=== PATIENT | female | born 1950 | race African-American/Black ===

== ENCOUNTER 2020-02-11 14:31 | Inpatient (IN) | payer OTHER ==
[~2020-02-11] VITALS: Ht 165.1 cm; Wt 119.5 kg
[2020-02-11 14:43] VITALS: BP 147/69
[2020-02-11 15:10] LABS: ABSOLUTE NEUTROPHILS 7.5 thou/uL (1.4-8.2); BASOPHILS 0.4 % (0.0-2.0); EOSINOPHILS 5.2 % (0.0-3.0); HEMATOCRIT 24.2 % (37.0-47.0); HEMOGLOBIN 8.1 gm/dL (12.0-15.0); LYMPHOCYTES 10.1 % (24.0-44.0); MCH 30.3 pg (26.0-34.0); MCHC 33.4 g/dL (28.0-37.0); MCV 90.6 fL (80.0-100.0); MONOCYTES 7.2 % (1.0-8.0); PLATELET COUNT 266 thou/uL (150-400); POLYS 77.1 % (36.0-66.0); RBC 2.67 mil/uL (4.20-5.00); RDW 14.7 % (10.5-14.5); WBC 9.8 thou/uL (4.0-11.0)
[2020-02-11 15:18] LABS: CREATININE 3.7 mg/dL (0.6-1.0); POTASSIUM 4.6 mmol/L (3.5-5.1)
[2020-02-11 15:28] LABS: ALBUMIN 3.2 g/dL (3.4-5.0); TOTAL BILIRUBIN 0.2 mg/dL (<0.1-1.0); TOTAL PROTEIN 7.3 g/dL (6.4-8.2); TROPONIN-I 0.11 ng/mL (<0.06)
--- NOTE | 2020-02-11 15:54 | EKG ---
[facility] [place] [address] ELECTROCARDIOGRAM REPORT Name: TAWANDA ADAME Room #: PRE M.R.#: [id number] Admission: Attend Phys: Discharge: Date of : 46 Report #: [id number] THIS REPORT FOR: cc: Luiz Benoit MD ~ THIS REPORT FOR: //name// [facility] ED Test Date: 2020-02-11 Test Time: 14:44:13 Pat Name: TAWANDA ADAME Department: Room: Gender: F Neon Technician: DINAPEYTONBALDEMAR : 1950 Requested By: Devang Zepeda Order Number: [id number] MD: Luiz Benoit Measurements Intervals [place] Rate: 60 P: 52 NC: 166 QRS: 21 QRSD: 100 T: -9 QT: 480 QTc: 480 Interpretive Statements Sinus rhythm Probable left atrial enlargement Borderline repolarization abnormality Baseline wander in lead(s) II,III,aVR,aVL,aVF,V1,V3,V4,V5 No previous ECG available for comparison Electronically Signed On 02-11-2020 15:53:01 CDT by Luiz Benoit [email or web address] <ELECTRONICALLY SIGNED> By: Luiz Benoit MD 02/11/20 1553 1444 1444 Luiz Benoit MD /TENA
[2020-02-11] MEDS ORDERED: BACLOFEN5 MG PO (17:56)
[2020-02-11] MEDS ORDERED: NORVASC10 MG PO (17:56)
[2020-02-11] MEDS ORDERED: LIPITOR40 MG PO (17:56)
[2020-02-11] MEDS ORDERED: PROAIR HFA8.5 GM INH (17:56)
[2020-02-11] MEDS ORDERED: ASA81BEC PO (17:56)
[2020-02-11] MEDS ORDERED: TYLENOL325 M1 PO (17:56)
[2020-02-11] MEDS ORDERED: ROCALTROL0.25 MCG PO (17:57)
[2020-02-11] MEDS ORDERED: SYMBICORT160 MCG/4. INH (17:57)
[2020-02-11] MEDS ORDERED: FLONASE 0.05%50 MCG NASAL (17:58)
[2020-02-11] MEDS ORDERED: CARVEDILOL25 MG PO (17:58)
[2020-02-11] MEDS ORDERED: COLACE100 MG PO (17:58)
[2020-02-11] MEDS ORDERED: LASIX 40 MG TAB40 MG PO (17:58)
[2020-02-11] MEDS ORDERED: MELATONIN3 M1 PO (17:59)
[2020-02-11] MEDS ORDERED: SUPER THERAVIT1 EACH PO (17:59)
[2020-02-11] MEDS ORDERED: SINGULAIR 10 MG10 M1 PO (17:59)
[2020-02-11] MEDS ORDERED: PROTONIX40 M2 PO (18:01)
[2020-02-11] MEDS ORDERED: MYRBETRIQ25 MG PO (18:01)
[2020-02-11] MEDS ORDERED: SODIUM BICARBO650 M3 PO (18:01)
[2020-02-11] MEDS ORDERED: SERTRALINE HCL100 MG PO (18:01)
[2020-02-11] MEDS ORDERED: SPIRIVA18 MCG INH (18:02)
[2020-02-11] MEDS ORDERED: TRAMADOL 50 MG50 MG PO (18:02)
[2020-02-11 18:14] LABS: ALBUMIN 3.3 g/dL (3.4-5.0); TOTAL PROTEIN 6.8 g/dL (6.4-8.2)
[2020-02-11 18:18] LABS: APTT 26.2 Seconds (24.5-32.8); INR 1.1; PROTIME 11.2 Seconds (9.3-11.4)
[2020-02-11 18:34] VITALS: BP 171/75
[2020-02-11 18:44] LABS: TSH 2.183 uIU/mL (0.358-3.740)
[2020-02-11 19:10] VITALS: BP 174/70
[2020-02-11 19:45] VITALS: BP 116/94
[2020-02-12] VITALS (10 sets, daily range): BP systolic 100–153; BP diastolic 43–65
--- NOTE | 2020-02-12 05:03 | NUR ---
PT WAS AN ER ADMIT, WHO WAS ADMITTED WITH CHEST PAIN. PT IS STABLE UPON ARRIVING TO THE FLOOR BUT WHEEZING NOTED IN BREATHING. SCHEDULED BREATHING TREATMENT ADMINISTERED TO PT. PT IS ALERT AND ORIENTED. ADMISSION ASSESSMENT AND EDUCATION COMPLETED. HEPARIN DRIP IS IN PLACE. SCHEDULED MEDS ADMINISTERED TO PT. TOLERATED PO INTAKE.CONITNUE TO MONITOR PT. DENIES ANY FURTHER NEEDS AT THIS TIME.
[2020-02-12 08:06] LABS: HEMATOCRIT 21.6 % (37.0-47.0); HEMOGLOBIN 7.1 gm/dL (12.0-15.0); MCH 29.9 pg (26.0-34.0); MCHC 32.9 g/dL (28.0-37.0); MCV 90.7 fL (80.0-100.0); RBC 2.38 mil/uL (4.20-5.00); RDW 14.6 % (10.5-14.5)
--- NOTE | 2020-02-12 08:21 | EKG ---
[facility] [place] [address] ELECTROCARDIOGRAM REPORT Name: TAWANDA ADAME Room #: 212-P ADM IN M.R.#: [id number] Admission: 02/11/20 Attend Phys: Blanco Blair MD Discharge: Date of : 46 Report #: [id number] THIS REPORT FOR: cc: Heath Tran James D. DO Lundgren, Craig H. MD [facility] ~ THIS REPORT FOR: //name// [facility] ED Test Date: 2020-02-11 Test Time: 16:51:34 Pat Name: TAWANDA ADAME Department: Room: [facility] Gender: F Supervisor Area: graham : 1950 Requested By: Devang Zepeda Order Number: [id number] MD: Ottoniel Emerson Measurements Intervals [place]le Rate: 61 P: 53 NM: 170 QRS: 14 QRSD: 100 T: 1 QT: 480 QTc: 484 Interpretive Statements Sinus rhythm Poor R wave progression Borderline T wave abnormalities Compared to ECG 02/11/2020 14:44:13 No significant change was found Electronically Signed On 02-12-2020 8:19:12 CDT by Ottoniel Emerson [email or web address] <ELECTRONICALLY SIGNED> By: Ottoniel Emerson MD, [facility] 02/12/20 0819 1651 1651 Ottoniel Emerson MD, [facility] /EPI
[2020-02-12 08:26] LABS: INR 1.2; PROTIME 11.8 Seconds (9.3-11.4)
[2020-02-12 08:31] LABS: CALCIUM 9.5 mg/dL (8.5-10.1); CREATININE 3.6 mg/dL (0.6-1.0); MAGNESIUM 2.3 mg/dL (1.8-2.4); POTASSIUM 4.2 mmol/L (3.5-5.1); TROPONIN-I 0.11 ng/mL (<0.06)
[2020-02-12 08:43] LABS: APTT 120.4 Seconds (24.5-32.8)
--- NOTE | 2020-02-12 10:08 | 2DMMODE ---
[facility] [place] [address] 2 D/M-MODE ECHOCARDIOGRAM Name: TAWANDA ADAME Room #: 212-P ADM IN M.R.#: [id number] Admission: 02/11/20 Attend Phys: Blanco Blair MD Discharge: Date of : 46 Report #: [id number] THIS REPORT FOR: cc: Heath Tran James D. DO Lundgren, Craig H. MD [facility] ~ APPROVED REPORT Study performed: 02/12/2020 08:58:33 EXAM: Comprehensive 2D, Doppler, and color-flow Echocardiogram Patient Location: Bedside Room #: 212 Status: routine BSA: 2.21 HR: 62 bpm BP: 136/61 mmHg Rhythm: NSR Other Information Study Quality: Good Indications Elevated Troponin Question PE. Hx: Cardiomyopathy, COPD, HTN, DM, morbid obesity. 2D Dimensions RVDd: 40.93 mm IVSd: 10.37 (7-11mm) LVOT Diam: 20.29 (18-24mm) LVDd: 56.96 mm PWd: 9.53 (7-11mm) Ascending Ao: 28.31 (22-36mm) LVDs: 38.65 (25-40mm) Aortic Root: 31.36 mm Volumes Left Atrial Volume (Systole) Single Plane 4CH: 104.51 mL Single Plane 2CH: 108.18 mL LA ESV Index: 53.00 mL/m2 Aortic Valve AoV Peak Gabriel.: 2.43 m/s AO Peak Gr.: 23.71 mmHg LVOT Max P.13 mmHg AO Mean Gr.: 12.57 mmHg [facility] [address] [place] [address] 2 D/M-MODE ECHOCARDIOGRAM Name: ADAMETAWANDA Room #: 212-P [facility] IN .R.#: [id number] Admission: 02/11/20 Attend Phys: Blanco Blair, Discharge: Date of : 46 Report #: [id number] AO V2 Mean: 1.68 m/s LVOT Max V: 1.33 m/s AO V2 VTI: 55.90 cm ARTURO Vmax: 1.77 cm2 Mitral Valve E/A Ratio: 2.1 MV Decel. Time: 159.44 ms MV E Max Gabriel.: 1.46 m/s MV A Gabriel.: 0.69 m/s MV PHT: 46.24 ms IVRT: 62.28 ms Pulmonary Valve PV Peak Gabriel.: 1.28 m/s PV Peak Gr.: 6.51 mmHg Pulmonary Vein P Vein S: 0.87 m/s P Vein A: 0.29 m/s P Vein D: 0.68 m/s P Vein A Dur.: 152.2 msec P Vein S/D Ratio: 1.28 Tricuspid Valve TR Peak Gabriel.: 3.47 m/s RAP Estimate: 12.00 mmHg TR Peak Gr.: 48.30 mmHg PA Pressure: 60.00 mmHg Left Ventricle The left ventricle is normal size. There is normal LV segmental wall motion. There is normal left ventricular wall thickness. Left ventricular systolic function is normal. LVEF is 60-65%. Right Ventricle The right ventricle is normal size. The right ventricular systolic function is normal. Atria Left atrium is dilated. Right atrium is at the upper limits of normal. Aortic Valve Aortic valve leaflets are thickened and mildly calcified; very mild stenosis. No aortic regurgitation is present. Calculated aortic valve area is 1.8 cm2 with maximum pressure gradient of 24 mmHg and mean pressure gradient of 13 mmHg. Mitral Valve The mitral valve is normal in structure. Mild mitral regurgitation. [address] [address] 2 D/M-MODE ECHOCARDIOGRAM Name: TAWANDA ADAME Room #: 212-P [facility] IN M.R.#: [id number] Admission: 02/11/20 Attend Phys: Blanco Blair, Discharge: Date of : 46 Report #: [id number] No evidence of mitral valve stenosis. Tricuspid Valve The tricuspid valve is normal in structure. Mild to moderate tricuspid regurgitation. Estimated PAP is 55 mmHg. Pulmonic Valve Pulmonic valve is not well visualized. Trace pulmonic regurgitation. Great Vessels The aortic root is normal in size. The ascending aorta is normal in size. IVC is dilated and collapses <50% with inspiration. Pericardium There is no pericardial effusion. <Conclusion> Left ventricular systolic function is normal. There is normal LV segmental wall motion. LVEF is 60-65%. Left atrium is dilated. Aortic valve leaflets are thickened and mildly calcified; very mild stenosis. No aortic insufficiency Calculated aortic valve area is 1.8 cm2 (Peak gradient of 24 mmHg and mean pressure gradient of 13 mmHg). The mitral valve is normal in structure. Mild mitral regurgitation. Mild to moderate tricuspid regurgitation. Estimated pulmonary artery pressure of 55 mmHg. There is no pericardial effusion. <ELECTRONICALLY SIGNED> By: Ottoniel Emerson MD, FACC 02/12/20 1006 1006 1006 Ottoniel Emerson MD, FACC /INF
--- NOTE | 2020-02-12 15:16 | NUR ---
PT IS FROM [facility] FAXED CLINICAL UPDATE SPOKE WITH GATO IN ADM SHE RECEIVED UPDATE. DP TO FOLLOW.
--- NOTE | 2020-02-12 17:12 | NUR ---
Case opened to follow for dc planning. [facility] Practitioner spoke with the pt via phone and the liason from [facility]. The pt is a ltc resident there and is normally up in a w/c or with a rwalker and assistx 1. She is a&ox4 and indicates that she has let her bro/dpoa Bereket know that she is in the hospital. She is planning to return to [facility] at [place]. Will ask for PT/OT evals for possible snf stay as she may benefit from therapy. She is a smoker, does not wear o2 and has a hx of schizoeffect disorder. She states that she is feeling better. Cm role introduced. Will follow along and coordinate her return to the SNF [place].
--- NOTE | 2020-02-12 18:37 | NUR ---
PT CARE ASSUMED AT 0700. ASSESSMENTS CHARTED. MEDICATION CHARTED. ECHO PERFORMED. V/Q SCAN PERFORMED. HEPARIN AT 8.911 U/KG/HR, 1435 APTT 60.8 NO CHANGE. OZZIE ORDER 1 UNIT RBC FOR 7.1 HGB.
[2020-02-13] VITALS (7 sets, daily range): BP systolic 143–158; BP diastolic 61–76
--- NOTE | 2020-02-13 05:10 | NUR ---
ASSUMED PT CARE AT 1900. PT IS IS ALERT AND ORIENTED WITH NO SIGN OF DISTRESS NOTED IN PT. PT IS STABLE. ASSESSMENT COMPLETED AND DOCUMENTED. FALL PRECAUTION IN PLACE. BLOOD TRANSFUSION ORDERED. 1 UNIT OF PRBC ADMINISTERED TO PT. PT TOLERATED TRANSFUSION. NO SIGN OF DISTRESS NOTED IN PT. SCHEDULED MEDS ADMINISTERED TO PT. TOLERATED PO INTAKE. CONTINUE TO MONITOR. NO ACUTE EVENT OCCURRED OVERNIGHT. DENIES ANY FURTHER NEEDS AT AT THIS TIME.
[2020-02-13 06:37] LABS: HEMATOCRIT 24.6 % (37.0-47.0); HEMOGLOBIN 8.1 gm/dL (12.0-15.0); MCV 91.1 fL (80.0-100.0); RBC 2.7 mil/uL (4.20-5.00); RDW 14.5 % (10.5-14.5); WBC 9.2 thou/uL (4.0-11.0)
[2020-02-13 06:48] LABS: INR 1.1; PROTIME 11.4 Seconds (9.3-11.4)
[2020-02-13 06:49] LABS: CALCIUM 9.7 mg/dL (8.5-10.1); CREATININE 3.7 mg/dL (0.6-1.0); MAGNESIUM 2.5 mg/dL (1.8-2.4); POTASSIUM 4.5 mmol/L (3.5-5.1)
--- NOTE | 2020-02-13 14:06 | NUR ---
Update given to the [facility] liajono. Dc timeframe is uncertain. Pt got one unit of blood and is on heprin gtt. Care team awaiting records from [facility]. PT/OT following. Dc to SNF at [place] once medically stable.
[2020-02-13] MEDS ORDERED: CHLORZOXAZONE250 M1 PO (15:54)
[2020-02-13] MEDS ORDERED: DIFLORASONE DIA TOP (15:55)
[2020-02-13] MEDS ORDERED: LIDOCAINE35.44 GM TOP (15:55)
[2020-02-13] MEDS ORDERED: BACLOFEN 10MG T10 MG PO (15:56)
[2020-02-13] MEDS ORDERED: CALCIPOTRIENE60 G1 TOP (15:56)
[2020-02-13] MEDS ORDERED: ACETAMINOPHEN325 M1 PO (17:19)
[2020-02-13] MEDS ORDERED: SODIUM BICARBO650 M3 PO (17:23)
[2020-02-13] MEDS ORDERED: TRAMADOL 50 MG50 MG PO (17:24)
--- NOTE | 2020-02-13 18:24 | NUR ---
PT CARE ASSUMED AT 0700. ASSESSMENTS CHARTED. MEDICATION CHARTED. PT TESTED FOR COVID-19 FOR RETURN TO FACILITY, COVID-19 NEGATIVE.
[2020-02-14 04:50] LABS: HEMATOCRIT 24.1 % (37.0-47.0); MCH 29.9 pg (26.0-34.0); MCHC 33.1 g/dL (28.0-37.0); MCV 90.5 fL (80.0-100.0); RBC 2.66 mil/uL (4.20-5.00); RDW 14.5 % (10.5-14.5); WBC 8.8 thou/uL (4.0-11.0)
[2020-02-14 05:13] VITALS: BP 157/64
[2020-02-14 05:17] LABS: INR 1.3; PROTIME 13.1 Seconds (9.3-11.4)
[2020-02-14 05:25] LABS: CALCIUM 9.6 mg/dL (8.5-10.1); CREATININE 3.6 mg/dL (0.6-1.0); MAGNESIUM 2.4 mg/dL (1.8-2.4); POTASSIUM 4.6 mmol/L (3.5-5.1)
--- NOTE | 2020-02-14 06:44 | NUR ---
ASSUMED PT CARE AT 1900. PT IS ALERT AND ORIENTED WITH NO SIGN OF DISTRESS NOTED IN PT. PT IS STABLE. ASSESSMENT COMPLETED AND DOCUMENTED. FALL PRECAUTION IN PLACE. SCHEDULED MEDS ADMINISTERED TO PT. DENIES ANY PAIN. CONTINUE TO MONITOR PT. DENIES ANY FURTHER NEEDS AT THIS TIME
[2020-02-14 08:00] VITALS: BP 136/66
[2020-02-14 12:00] VITALS: BP 157/62
[2020-02-14 17:00] VITALS: BP 164/83
--- NOTE | 2020-02-14 18:45 | NUR ---
ASSUMMED PT CARE AT APPROXIMATELY 0700. PT A&O X4. ASSESSMENT CHARTED. FALL PRECAUTIONS IN PLACE. PT DENIES HAVING CHEST PAIN. PT STATED SHE HAS SOB ON EXERSION. O2 SATS STABLE. VITAL SIGNS STABLE. BLOOD SUGARS STABLE. PT DENIED HAVING ACUTE PAIN. PT STATED SHE HAD HEARTBURN. ELEVATED HOB. REPOSITIONED PT. PT STATED SHE CONTINUED TO HAVE HEARTBURN. INFORMED DR. LAMBERT. DR. LAMBERT ORDERED NEW MED. NEW MED IMPLEMENTED. WILL CONT TO MONITOR HEARTBURN. PT COMFORTABLE. PT DENIES HAVING FURTHER CONCERNS. PT ON CONTINUOUS HEPARIN DRIP. HEPARIN THERAPEUTIC. HEPARIN PROTOCOL FOLLOWED.
[2020-02-14 19:28] VITALS: BP 148/70
--- NOTE | 2020-02-15 00:52 | NUR ---
TOOK OVER CARE AT 2300. PT AWKAE AND RESTING IN BED. HEPARIN DRIP INTACT.
--- NOTE | 2020-02-15 02:17 | NUR ---
PT CALLS FOR STAFF TO ASSIST WITH REPOSITIONING.
[2020-02-15 04:34] LABS: HEMOGLOBIN 8.6 gm/dL (12.0-15.0); MCH 29.8 pg (26.0-34.0); MCHC 32.9 g/dL (28.0-37.0); MCV 90.4 fL (80.0-100.0); RBC 2.87 mil/uL (4.20-5.00); RDW 14.6 % (10.5-14.5); WBC 10.3 thou/uL (4.0-11.0)
[2020-02-15 04:51] LABS: CREATININE 3.8 mg/dL (0.6-1.0); MAGNESIUM 2.5 mg/dL (1.8-2.4); POTASSIUM 5.3 mmol/L (3.5-5.1)
[2020-02-15 05:30] LABS: INR 1.6; PROTIME 16.7 Seconds (9.3-11.4)
[2020-02-15 08:00] VITALS: BP 143/70
[2020-02-15 12:00] VITALS: BP 163/77
[2020-02-15 16:00] VITALS: BP 153/83
--- NOTE | 2020-02-15 17:19 | NUR ---
PT CARE ASSUMED AT 0700, PT ALERT AND OORIENTED X4, DENIES CHEST PAIN, NAUSEA AND VOMITING. PT SOUNDS WHEEZY, AND MORE SOA WITH ANY ACTIVITY. PT IS ON 2L NC, CONTINUOS PULSE OX IS ON PT. PT IS ON HEPARIN DRIP 8UNITS/KG WITHIN THERAPEUTIC RANGE. PT DENIES ANY NEEDS AT THE MOMENT. CALL LIGHT AND TABLE WITHIN REACH. WILL CONTINUE TO MONITOR.
[2020-02-15 20:33] VITALS: BP 168/70
--- NOTE | 2020-02-16 05:11 | NUR ---
ASSUMED PT CARE AT 1900. PT IS ALERT AND ORIENTED. NO SIGN OF DISTRESS NOTED IN PT. PT IS STABLE AND LAYING IN BED. VITAL SIGNS STABLE. FALL PRECAUTION IN PLACE. ASSESSMENT COMPLETED AND DOCUMENTED. DENIES ANY PAIN. SCHEDULED MEDS ADMINISTERED TO PT. TOLERATED PO INTAKE. PT VERBALIZES HEARTBURN. MEDICATION ADMINISTERED. HEPARIN DRIP IN PLACE. CONTINUE TO MONITOR PT. DENIES ANY FURTHER NEEDS AT THIS TIME
[2020-02-16 05:17] VITALS: BP 176/77
[2020-02-16 05:50] LABS: INR 2.4; PROTIME 24.6 Seconds (9.3-11.4)
[2020-02-16 07:30] VITALS: BP 179/66
[2020-02-16 07:46] LABS: HEMATOCRIT 26.2 % (37.0-47.0); HEMOGLOBIN 8.7 gm/dL (12.0-15.0); RBC 2.88 mil/uL (4.20-5.00); RDW 14.7 % (10.5-14.5); WBC 10.9 thou/uL (4.0-11.0)
[2020-02-16 07:49] LABS: CALCIUM 9.7 mg/dL (8.5-10.1); CREATININE 3.6 mg/dL (0.6-1.0); MAGNESIUM 2.3 mg/dL (1.8-2.4); POTASSIUM 4.6 mmol/L (3.5-5.1)
[2020-02-16 09:45] VITALS: BP 148/65
[2020-02-16 11:45] VITALS: BP 143/67
[2020-02-16] MEDS ORDERED: COUMADIN 2.5MG2.5 M1 PO (14:23)
[2020-02-16] MEDS ORDERED: NICOTINE TRANSD14 M1 TRANSDERM (14:23)
--- NOTE | 2020-02-16 14:29 | NUR ---
FAXED CLINICAL UPDATE TO [facility] SPOKE WITH GATO IN ADM SHE RECEIVED UPDATE. DP TO FOLLOW.
--- NOTE | 2020-02-16 14:49 | NUR ---
Sp with Lucía at [facility] who reports waived auth from [facility] for skilled care. She arranged van for [id number]. Updated phys who completed orders. Notified RN of time she plans to tell patient. Notified brother of dc and timeframe. Faxed orders to facility and unit. Requested chart copy. no further needs
--- NOTE | 2020-02-16 16:37 | NUR ---
ASSUMED CARE 0700. PT ALERTX3, FROM [facility], ELEVATED BP MANAGED WITH MEDICATIONS, SOB WITH TRANSFERS, CONTINUES ON 2L NASAL CANNULA, AX1 WITH GATE BELT AND WALKER, DENIES PAIN, PT VOICE LEFT LE SWELLING HAS "GONE DOWN." PT PROGRESSED TO BE DC'S TO [facility]. REPORT GIVEN TO SAEID CHEN. IV AND TELE REMOVED. LEFT WITH SECURE TRANSFER.
== END 2020-02-16 16:48 | DRG 299 ==
LOC: ER 14:31 → 2N 18:24 → EROBS 18:24 → 2N 19:49
PROVIDERS: Physician Assistant; ADMIT Internal Medicine
PROC: B54DZZZ Ultrasonography of Bilateral Lower Extremity Veins (ICD-10-PCS; principal; 2020-02-11)
PROC: 30233N1 Transfusion of Nonautologous Red Blood Cells into Peripheral Vein, Percutaneous Approach (ICD-10-PCS; 2020-02-12)
DX: I82.409 Acute embolism and thrombosis of unspecified deep veins of unspecified lower extremity (principal); J96.01 Acute respiratory failure with hypoxia; N17.9 Acute kidney failure, unspecified; I42.9 Cardiomyopathy, unspecified; J44.1 Chronic obstructive pulmonary disease with (acute) exacerbation; Z68.41 Body mass index [BMI] 40.0-44.9, adult; I13.0 Hypertensive heart and chronic kidney disease with heart failure and stage 1 through stage 4 chronic kidney disease, or unspecified chronic kidney disease; J45.909 Unspecified asthma, uncomplicated; E03.9 Hypothyroidism, unspecified; F41.9 Anxiety disorder, unspecified; F25.9 Schizoaffective disorder, unspecified; I50.9 Heart failure, unspecified; N18.9 Chronic kidney disease, unspecified; F17.210 Nicotine dependence, cigarettes, uncomplicated; E11.22 Type 2 diabetes mellitus with diabetic chronic kidney disease; D63.8 Anemia in other chronic diseases classified elsewhere; G47.33 Obstructive sleep apnea (adult) (pediatric); E66.01 Morbid (severe) obesity due to excess calories; K21.9 Gastro-esophageal reflux disease without esophagitis; E87.5 Hyperkalemia; Z79.82 Long term (current) use of aspirin; Z79.899 Other long term (current) drug therapy; Z88.0 Allergy status to penicillin; Z88.8 Allergy status to other drugs, medicaments and biological substances
CPT/HCPCS: 10081

== ENCOUNTER 2020-04-07 12:47 | Inpatient (IN) | payer OTHER ==
[~2020-04-07] VITALS: Ht 152.4 cm; Wt 124.5 kg
[2020-04-07] VITALS (13 sets, daily range): BP systolic 103–144; BP diastolic 38–66
--- NOTE | ~2020-04-07 | HC ---
[facility] [place] [address] CONSULTATION Name: TAWANDA ADAME Room #: 237-P [facility] IN M.R.#: [id number] Admission: 04/07/20 Attend Phys: Bar Buck MD Discharge: Date of : 46 Report #: [id number] THIS REPORT FOR: cc: Heath Tran,Ole Baig DO ~ CC: Heath Buck PALLIATIVE CARE CONSULTATION CHIEF COMPLAINT: Respiratory failure, COVID-19. HISTORY OF PRESENT ILLNESS: The patient is a 69-year-old female who presented initially on 04/07/2020. She had known COVID-19, acute pulmonary edema and renal failure. Unfortunately, the patient has had no significant progression of her overall condition towards a positive manner and had unfortunately required ventilatory support. She is on day #9 of ventilatory support. She is requiring a high FiO2. Chest x-ray has not improved significantly. Dr. Brandon consulted as the patient's outlook appeared to be poor. The patient is nonresponsive at this time. PAST MEDICAL HISTORY: Significant for congestive heart failure, chronic kidney disease, DVT history, hypertension, type 2 diabetes. SOCIAL HISTORY: Brother is power of title attorney. His name is Bereket Willis. I have spoken with him today. FAMILY HISTORY: Noncontributory. Unable to obtain at this time. ALLERGIES: PENICILLIN AND LISINOPRIL. PAST SURGICAL HISTORY: Unable to obtain due to present medical condition. MEDICATIONS: Currently Reglan, sertraline, heparin, loratadine, Merrem, Humalog, aspirin, omeprazole, tramadol, fentanyl, propofol, desonide, Lasix. REVIEW OF SYSTEMS: Unable to obtain due to present medical condition. PHYSICAL EXAMINATION: VITAL SIGNS: Includes temperature 36.6, pulse 63, respirations 19, blood pressure 102/44, 94% on ventilatory support. GENERAL: The patient is not alert. Did a distance exam today; does not appear to be in any distress. HEENT: Does not appear to have any trauma to the scalp. CARDIOVASCULAR: Appears to be regular rate and rhythm at this time, worse on monitoring. [facility] [address] [place] [address] CONSULTATION Name: TAWANDA ADAME Room #: 237-P ADM IN M.R.#: [id number] Admission: 04/07/20 Attend Phys: Bar Buck MD Discharge: Date of : 46 Report #: [id number] ABDOMEN: No significant distention reported. NEUROLOGIC: Again, nonresponsive, poor attention. LABORATORY DATA: These include pH 7.195, which is a significant decrease over time. Hemoglobin 7.3, creatinine 3.5. ASSESSMENT AND PLAN: 1. Acute hypoxic respiratory failure. At this time, I have discussed with brother with regards to her condition that is worsening. He has elected for do not resuscitate status. Did discuss the possibility of palliative extubation in palliative care. He is to discuss with 2 daughters, his sisters prior to making any further decisions with regards to this. We will follow up tomorrow. I spent approximately 20 minutes of advanced care planning. 2. SARS-CoV-2. Appreciate primary team's management. Not a candidate for remdesivir. She is on steroids, has had positioning, unfortunately worsening of her overall respiratory status. 3. Acute renal failure. Again, she has worsening renal condition, although relatively stable recently, this likely is in play in her current condition. Thank you very much for this consultation. I will follow up with the family's decision in the morning with regards to care. By: [id number] 0427 Ole Diaz DO /nt
--- NOTE | ~2020-04-07 | EMS ---
[facility] [address] [place] [address] EMS Patient Care Report Name: TAWANDA ADAME Room #: REG ARTEM Quevedo#: [id number] Admission: 04/07/20 Attend Phys: Discharge: Date of : 46 Report #: [id number] THIS REPORT FOR: //name// Report Transmitted: 04/07/2020 13:50 EMS Care Summary [place], [place]/[facility] Incident [id number] @ 04/07/2020 12:11 Incident Location [id number] [place] [address] [address] Patient TAWANDA ADAME Female, 69 Years 1950 Patient Address [address] [facility] [address] [place] [address] Patient History Asthma,Chronic Obstructive Pulmonary Disease (COPD), Patient Allergies No known allergies, Patient Medications Aspirin, Atorvastatin, Carvedilol, Chief Complaint SHORT OF AIR Disposition Transported No Lights/[place] Dispatch Reason Breathing Problem Transported To [facility] Narrative RESPONDED TO [facility] FOR BREATHING PROBLEMS. UPON ARRIVAL PT FOUND LAYING IN BED ALERT AND ORIENTED BUT ONLY SPEAKING BROKEN SENTENCES. STAFF REPORT PT HAS BEEN IN RESPIRATORY DISTRESS SINCE THIS MORNING AND THEY HAVE STRUGGLED TO [facility] [address] [place] [address] EMS Patient Care Report Name: TAWANDA ADAME Room #: REG ARTEM Quevedo#: [id number] Admission: 04/07/20 Attend Phys: Discharge: Date of : 46 Report #: [id number] KEEP HER O2 SATS UP. PT SATS ON 4LPM AT 76 PERCENT. PT LUNG SOUNDS WET AND FLUID NOTED, PT HAS DEEP COUGH. PT TESTED NEGATIVE FOR COVID 19 RECENTLY. PT DID NOT HAVE SYMTPOMS TODAY. PT TEAM LIFTED TO COT AND SAT UP. PT PLACED ON NRB AT 15LPM WITH SOME IMPROVEMENT AND RELIEF REPORTED. PT TRANSPORTED TO [facility]. PT TEAM LIFTED TO BED AND HANDRAILS UP. REPORT GIVEN TO NURSE. Initial Vitals @12:31P: 97,SpO2: 76, @12:37P: 103,CO: 15,SpO2: 94, @12:30P: 62,R: 24,BP: 128/61,Pain: 0/10,GCS: 15,SpO2: 80,Revised Trauma: 12, @12:32P: 54,SpO2: 75, @12:34P: 65,BP: 153/61,SpO2: 89, Assessments @12:24MENTAL:Time Oriented,Person Oriented,Event Oriented,Place Oriented,SKIN:HEENT:Head/Face: No Abnormalities,Neck/Airway: No Abnormalities,LUNG SOUNDS:General: No Abnormalities,ABDOMEN:General: No Abnormalities,PELVIS//GI:Incontinence,EXTREMITIES:Right Leg: Weakness,Left Arm: Weakness,Left Leg: Weakness,Right Arm: Weakness,PULSE:NEURO:No Abnormalities,@12:30MENTAL:No Abnormalities,SKIN:No Abnormalities,HEENT:Head/Face: No Abnormalities,Eyes: No Abnormalities,Neck/Airway: No Abnormalities,LUNG SOUNDS:General: No Abnormalities,Left Upper: No Abnormalities,Right Upper: No Abnormalities,Left Lower: No Abnormalities,Right Lower: No Abnormalities,ABDOMEN:General: No Abnormalities,Left Upper: No Abnormalities,Right Upper: No Abnormalities,Left Lower: No Abnormalities,Right Lower: No Abnormalities,PELVIS//GI:No Abnormalities,EXTREMITIES:Left Leg: Weakness,Left Arm: Weakness,Right Arm: Weakness,Right Leg: Weakness,PULSE:NEURO:No Abnormalities, Impression Acute Respiratory Distress (Dyspnea) Procedures @12:24ALS AssessmentResponse: UnchangedSucceeded@12:26Oxygen FlowRate: 15 Device: Non Re-breather Mask (NRB) Response: ImprovedSucceeded@PTAOxygen FlowRate: 4 Device: Nasal Cannula (NC) Succeeded@12:283-Lead ECGResponse: UnchangedSucceeded 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,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 FlowRate: 4 Device: Nasal Cannula (NC) Succeeded, 12:10,Call Received 12:10,Dispatch Notified 12:11,Dispatched 12:12,En Route 12:20,On Scene 12:24,[place] [address] EMS Patient Care Report Name: TAWANDA ADAME Room #: VASYL Quevedo#: [id number] Admission: 04/07/20 Attend Phys: Discharge: Date of : 46 Report #: [id number] 12:24,ALS Assessment,Response: UnchangedSucceeded, 12:26,Oxygen FlowRate: 15 Device: Non Re-breather Mask (NRB) Response: ImprovedSucceeded, 12:28,3-Lead ECG,Response: UnchangedSucceeded, 12:30,BP: 128/61 M,PULSE: 62,RR: 24 R,SPO2: 80 Ox,ETCO2: ,BG: ,PAIN: 0,GCS: 15, 12:31,BP: / M,PULSE: 97,RR: R,SPO2: 76 Ox,ETCO2: ,BG: ,PAIN: ,GCS: , 12:32,BP: / M,PULSE: 54,RR: R,SPO2: 75 Ox,ETCO2: ,BG: ,PAIN: ,GCS: , 12:32,Depart Scene 12:34,BP: 153/61 M,PULSE: 65,RR: R,SPO2: 89 Ox,ETCO2: ,BG: ,PAIN: ,GCS: , 12:37,BP: / M,PULSE: 103,RR: R,SPO2: 94 Ox,ETCO2: ,BG: ,PAIN: ,GCS: , 12:42,At Destination 12:56,Call Closed Disclaimer v1.1 Copyright 2020 [employer] This EMS Care Summary contains data elements from the applicable legal record (which may be displayed differently). It is designed to provide pertinent information for the following purposes: continuity of care, clinical quality, and state data reporting. The complete legal record is available to ED staff and administrators of the receiving hospital in [facility] Patient Tracker. All data is provided "as is."
[~2020-04-07 12:47] MED LIST: ACETAMINOPHEN325 M1 PO; ASA81BEC PO; BACLOFEN 10MG T10 MG PO; BACLOFEN5 MG PO; CALCIPOTRIENE60 G1 TOP; CARVEDILOL25 MG PO; CHLORZOXAZONE250 M1 PO; COLACE100 MG PO; COUMADIN 2.5MG2.5 M1 PO; DIFLORASONE DIA TOP; FLONASE 0.05%50 MCG NASAL; LASIX 40 MG TAB40 MG PO; LIDOCAINE35.44 GM TOP; LIPITOR40 MG PO; MELATONIN3 M1 PO; MYRBETRIQ25 MG PO; NICOTINE TRANSD14 M1 TRANSDERM; NORVASC10 MG PO; PROAIR HFA8.5 GM INH; PROTONIX40 M2 PO; ROCALTROL0.25 MCG PO; SERTRALINE HCL100 MG PO; SINGULAIR 10 MG10 M1 PO; SODIUM BICARBO650 M3 PO; SPIRIVA18 MCG INH; SUPER THERAVIT1 EACH PO; SYMBICORT160 MCG/4. INH; TRAMADOL 50 MG50 MG PO; TYLENOL325 M1 PO
[2020-04-07 13:22] LABS: ABSOLUTE NEUTROPHILS 8.9 thou/uL (1.4-8.2); BASOPHILS 0.4 % (0.0-2.0); EOSINOPHILS 0.6 % (0.0-3.0); HEMATOCRIT 23.3 % (37.0-47.0); HEMOGLOBIN 7.7 gm/dL (12.0-15.0); LYMPHOCYTES 2.5 % (24.0-44.0); MCH 29.8 pg (26.0-34.0); MCV 90.2 fL (80.0-100.0); MONOCYTES 10.3 % (1.0-8.0); PLATELET COUNT 248 thou/uL (150-400); POLYS 86.2 % (36.0-66.0); RBC 2.58 mil/uL (4.20-5.00); WBC 10.3 thou/uL (4.0-11.0)
[2020-04-07 13:29] LABS: URINE BILIRUBIN NEGATIVE (Negative); URINE BLOOD TRACE (Negative); URINE CLARITY CLEAR; URINE COLOR YELLOW; URINE GLUCOSE-RANDOM* NEGATIVE (Negative); URINE KETONES NEGATIVE (Negative); URINE LEUKOCYTES-REFLEX NEGATIVE (Negative); URINE NITRITE-REFLEX NEGATIVE (Negative); URINE PROTEIN (DIPSTICK) 1+ (Negative); URINE SPECIFIC GRAVITY 1.015 (1.005-1.035); URINE UROBILINOGEN 0.2 E.U./dl (0.2-1.0)
[2020-04-07 13:29] LABS: ANION GAP 7 mmol/L (7-16); BUN 39 mg/dL (7-18); CALCIUM 9.4 mg/dL (8.5-10.1); CHLORIDE 106 mmol/L (98-107); CO2 26 mmol/L (21-32); CREATININE 3.3 mg/dL (0.6-1.0); GLUCOSE 110 mg/dL (74-106); POTASSIUM 5.1 mmol/L (3.5-5.1); SODIUM 139 mmol/L (136-145)
[2020-04-07 13:35] LABS: ALBUMIN 2.8 g/dL (3.4-5.0); DIRECT BILIRUBIN < 0.1 mg/dL (<0.1-0.2); SGOT 18 U/L (15-37); SGPT 27 U/L (30-65); TOTAL BILIRUBIN 0.3 mg/dL (0.2-1.0); TOTAL PROTEIN 6.2 g/dL (6.4-8.2)
[2020-04-07 13:39] LABS: BACTERIA-REFLEX 1-9 Few /HPF (None Seen); CASTS None Seen /LPF (None Seen); CRYSTALS None Seen /LPF (None Seen); SQUAMOUS 0-3 Few /LPF (0-3); URINE RBC 0-2 Rare /HPF (0-2); URINE WBC-REFLEX 0-5 Rare /HPF (0-5)
[2020-04-07 13:45] LABS: BE(vivo) -3.6 mmol/L (-2 to +3); HCO3 22.2 mmol/L (22.0-26.0); PCO2 43.8 mmHg (35.0-45.0); PO2 68.7 mmHg (80.0-100.0); pH 7.323 (7.360-7.450); sO2 92.4 % (92.0-98.0)
[2020-04-07 14:18] LABS: INR 2.6
--- NOTE | 2020-04-07 19:26 | NUR ---
ADMITTED TO ICU ON BIPAP. RATE 22, 12/6, .60 FIO2. LUNGS COURSE WITH CRACKLES. TOLERATING WELL. REPORT GIVEN TO TIM CHEN.
[2020-04-08] VITALS (23 sets, daily range): BP systolic 95–153; BP diastolic 42–83
[2020-04-08 06:50] LABS: HEMATOCRIT 24.9 % (37.0-47.0); HEMOGLOBIN 7.8 gm/dL (12.0-15.0); MCH 28.7 pg (26.0-34.0); MCHC 31.5 g/dL (28.0-37.0); MCV 91.2 fL (80.0-100.0); RBC 2.73 mil/uL (4.20-5.00); WBC 7.7 thou/uL (4.0-11.0)
[2020-04-08 07:07] LABS: CALCIUM 9.1 mg/dL (8.5-10.1); CREATININE 3.5 mg/dL (0.6-1.0); POTASSIUM 4.9 mmol/L (3.5-5.1)
--- NOTE | 2020-04-08 07:42 | EKG ---
[facility] [place] [address] ELECTROCARDIOGRAM REPORT Name: TAWANDA ADAME Room #: 237-P ADM IN M.R.#: [id number] Admission: 04/07/20 Attend Phys: Bar Buck MD Discharge: Date of : 46 Report #: [id number] THIS REPORT FOR: cc: Heath Tran James D. DO Lundgren, Craig H. 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 : 1950 Requested By: Kamron Bartlett Order Number: [id number] MD: Ottoniel Emerson Measurements Intervals [place] Rate: 58 P: 75 OK: 181 QRS: 50 QRSD: 96 T: 3 QT: 442 QTc: 435 Interpretive Statements Sinus rhythm Low voltage Nonspecific T wave abnormalities Compared to ECG 02/11/2020 16:51:34 Low QRS voltage now present Electronically Signed On 04-08-2020 7:42:12 CDT by Ottoniel Emerson [email or web address] <ELECTRONICALLY SIGNED> By: Ottoniel Emerson MD, [facility] 04/08/20 0742 1547 1547 Ottoniel Emerson MD, [facility] /EPI
--- NOTE | 2020-04-08 12:00 | NUR ---
chart review. pt using bipap, unable to visit with her and covid test pending. cm left message with her brother any. cm spoke with care givers at [facility]. pt is ltc resident there, she is able to make her needs know. uses wheel chair, continent of b and b. non compliant with o2 rt she usually goes out to smoke but since on lock down last week she has not."/[facility] caregiver. when medically stable for dc, will dc back to [facility].
--- NOTE | 2020-04-08 16:34 | NUR ---
Patients brother, Bereket Willis was updated on patients status and new confirmed COVID positive results. Patient remains stable but requires respiratory interventions and progressing towards goals.
--- NOTE | 2020-04-08 19:41 | NUR ---
At 1416, patients brother,Bereket Willis, called and wished to add patients sister, Joana Lakhani to the contact list. Joana succesfully stated patient identifiers and the patient confirmed. Bereket then gave her the security code.
[2020-04-09] VITALS (27 sets, daily range): BP systolic 107–155; BP diastolic 43–120
[2020-04-09 05:52] LABS: HEMATOCRIT 26.7 % (37.0-47.0); HEMOGLOBIN 8.4 gm/dL (12.0-15.0); MCH 28.7 pg (26.0-34.0); MCHC 31.4 g/dL (28.0-37.0); MCV 91.5 fL (80.0-100.0); RBC 2.92 mil/uL (4.20-5.00); RDW 16.1 % (10.5-14.5); WBC 9.3 thou/uL (4.0-11.0)
[2020-04-09 05:55] LABS: CALCIUM 8.8 mg/dL (8.5-10.1); CREATININE 3.5 mg/dL (0.6-1.0); POTASSIUM 4.6 mmol/L (3.5-5.1)
--- NOTE | 2020-04-09 05:57 | NUR ---
0345 PATIENT AWAKE AND UNCOMFORTABLE. WISHES TO REPOSITION. ASSISTED PATIENT TO REPOSITION. PATIENT BECAME SEVERLY SHORT OF AIR. LUNG SOUNDS COURSE, CRACKLES AND NOW WHEEZING. RT HERE AND INHALOR GIVEN, ALSO INCREASED BIPAP TO 60%. NURSE GAVE AM LASIX 40MG IV EARLY. SORENSEN REMAINS WITH PINK TINGED URINE. RR 30'S WITH DISTRESS. REASSURED PATIENT, ENCOURAGED TO BREATH IN THROUGH NOSE AND OUT OF MOUTH, TO CONCENTRATE ON SLOWING DOWN BREATHING. STAYED WITH PATIENT UNTIL CALMER. [address] HORNE FOR UPDATE. RETURNED CALL AT 0415 AND ORDERS FOR ADDITIONAL 40MG IVP LASIX FOR THIS AM. 0410 PATIENT RESTING QUIETLY, RR 20'S. 0600 PATIENT RESTING QUIETLY WITHOUT PRESENT COMPLAINTS. RR 22. CONTINUE TO WORK ON PLAN OF CARE AND GOALS FOR NOC. MONITOR CLOSELY.
[2020-04-09 10:38] LABS: INR 1.9; PROTIME 19.9 Seconds (9.3-11.4)
--- NOTE | 2020-04-09 11:09 | NUR ---
WHILE SITTING ON SIDE OF BED WITH PT AND OT, PT EXPERIENCED RESPIRATORY DISTRESS. PT PLACED BACK IN BED AND BIPAP APPLIED. SATS IMPROVED FROM 70% WITH 5L NC TO 100% ON 100% BIPAP. PT RECOVERED WITHIN 10 MINUTES OF HER INITIAL DISTRESS WITH EXERTION.
--- NOTE | 2020-04-09 13:46 | NUR ---
BRENDEN reviewed chart and spoke with attending physician. Pt remains in Enhanced Isolation due to COVID-19. Pt requires bipap support. Pt currently on 5L O2. SW provided update to [facility] post-acute liaison. Pt was using skilled services at the facility at time of admission. Therapy started working with pt today. Will need insurance authorization for pt to return using her skilled benefit. No weekend discharge planned. Pt may transfer out of ICU. Plan is for pt to return to [facility] when medically stable. BRENDEN is following to assist as needed with discharge planning.
--- NOTE | 2020-04-09 14:09 | NUR ---
FAXED CLINICAL UPDATE TO [facility] SPOKE WITH GATO IN ADM SHE RECEIVED UPDATE.
--- NOTE | 2020-04-09 18:37 | NUR ---
PT REQUIRING BIPAP ON/OFF THROGHOUT THE DAY; UNABLE TO TOLERATE P/T DUE TO INCREASED O2 REQUIREMENT AND LIGHTHEADEDNESS. SPOKE WITH PATIENT'S BROTHER EVARISTO BAUER, HE WOULD LIKE AN UPDATE FROM THE PRIMARY AND PLAN OF CARE FOR TRANSITIONING THE PATIENT. WILL UPDATE ONCOMING RN TO PASS ON FOR WHEN DOCTOR'S ROUND IN THE MORNING.
[2020-04-10] VITALS (24 sets, daily range): BP systolic 121–158; BP diastolic 34–91
[2020-04-10 04:25] LABS: HEMATOCRIT 23.8 % (37.0-47.0); HEMOGLOBIN 7.7 gm/dL (12.0-15.0); MCH 28.9 pg (26.0-34.0); MCHC 32.2 g/dL (28.0-37.0); MCV 89.8 fL (80.0-100.0); RBC 2.65 mil/uL (4.20-5.00); WBC 4.6 thou/uL (4.0-11.0)
[2020-04-10 04:29] LABS: CALCIUM 8.5 mg/dL (8.5-10.1); CREATININE 3.5 mg/dL (0.6-1.0); POTASSIUM 4.4 mmol/L (3.5-5.1)
--- NOTE | 2020-04-10 07:32 | NUR ---
PT ALERT AND ORIENTED. DESAT EASILY WITH ACTIVITY IN BED. PT ON BIPAP ALL NIGHT. CONTINUE TO MONITOR AT THIS TIME.
[2020-04-10 13:50] LABS: BE(vivo) -3.8 mmol/L (-2 to +3); HCO3 20.3 mmol/L (22.0-26.0); PCO2 32.6 mmHg (35.0-45.0); PO2 84.3 mmHg (80.0-100.0); pH 7.412 (7.360-7.450); sO2 96.6 % (92.0-98.0)
--- NOTE | 2020-04-10 17:39 | NUR ---
CONSULTED TO PLACE A CENTRAL LINE FOR A PATIENT IN ICU. ORDER AND CONSENT NOTED. A #5F TRIPLE LUMEN CENTRAL LINE WAS PLACED PER HOSPITAL POLICY AFTER A BEDSIDE TIMEOUT WAS COMPLETED. LINE 25CM ADVANCED TO 7CM EXTERNAL. A STAT CHEST XRAY CONFIRMED PROPER PLACEMENT AND LINE RELEASED FOR USE
--- NOTE | 2020-04-10 18:33 | NUR ---
PT INTUBATED TODAY AT [address] HORNE AND RT. OG TUBE PLACED, ALONG WITH RIGHT IJ BY IV ACCESS TEAM. ALL LINES/TUBES VERIFIED BY CXR. SORENSEN IN PLACE WITH ADEQUATE UOP, CLOTS PRESENT. AFEBRILE. BM TODAY. PT AND FAMILY WERE UPDATED AND EDUCATED ON PT CONDITION AND POC. WILL CONTINUE TO MONITOR.
[2020-04-11] VITALS (24 sets, daily range): BP systolic 118–147; BP diastolic 50–66
[2020-04-11 05:57] LABS: ABSOLUTE NEUTROPHILS 3.9 thou/uL (1.4-8.2); BASOPHILS 0.3 % (0.0-2.0); HEMATOCRIT 24.5 % (37.0-47.0); LYMPHOCYTES 12.2 % (24.0-44.0); MCHC 32.6 g/dL (28.0-37.0); MONOCYTES 10.8 % (1.0-8.0); PLATELET COUNT 229 thou/uL (150-400); POLYS 76.7 % (36.0-66.0); RBC 2.75 mil/uL (4.20-5.00); RDW 15.7 % (10.5-14.5); WBC 5.1 thou/uL (4.0-11.0)
[2020-04-11 06:00] LABS: INR 1.7; PROTIME 17.4 Seconds (9.3-11.4)
[2020-04-11 06:10] LABS: ALBUMIN 2.2 g/dL (3.4-5.0); CALCIUM 8.6 mg/dL (8.5-10.1); CREATININE 3.4 mg/dL (0.6-1.0); PHOSPHORUS 3.4 mg/dL (2.5-4.9); TOTAL BILIRUBIN 0.2 mg/dL (0.2-1.0); TOTAL PROTEIN 5.7 g/dL (6.4-8.2)
--- NOTE | 2020-04-11 07:44 | NUR ---
PT FOLLOWING COMMANDS. PT BRADYCARDIC WITH INCREASE IN SEDATION LAST NIGHT. PT HAD AN UNEVENTFUL NIGHT. WEANING OFF FIO2. CHART CHECK. CONTINUE TO MONITOR.
--- NOTE | 2020-04-11 18:31 | NUR ---
PT INTUBATED AND SEDATED. VENT SETTING UNCHANED. ASSESSMENTS DOCUMENTED. UOP ADEQUATE. NO BM TODAY. POSSIBLE PLASMA [facility] BLOOD GROUNDBOOTH CODE NUMBER IS [id number]. PT AND FAMILY HAVE BEEN EDUCATED AND UPDATED ON PT CONDITION AND POC. PT PROGRESSING TOWARDS POC. WILL CONINTUE TO MONITOR.
--- NOTE | 2020-04-11 22:43 | NUR ---
SEDATION VACATION PERFORMED AT APPROX 2030. PATIENT OPENS EYES SPONTANEOUSLY. PATIENT MOVES ALL EXTREMITIES AND FOLLOWS COMMANDS. PATIENT DOES APPEAR TO BECOME RESTLESS, PROPOFOL GTT RESTARTED AT 25 MCG/KG/MIN.
[2020-04-12] VITALS (31 sets, daily range): BP systolic 120–143; BP diastolic 50–68
[2020-04-12 04:39] LABS: BE(vivo) -3.1 mmol/L (-2 to +3); HCO3 20.5 mmol/L (22.0-26.0); PCO2 30.8 mmHg (35.0-45.0); PO2 63.3 mmHg (80.0-100.0); pH 7.441 (7.360-7.450); sO2 93.3 % (92.0-98.0)
[2020-04-12 06:37] LABS: ABSOLUTE NEUTROPHILS 6.3 thou/uL (1.4-8.2); BASOPHILS 0.1 % (0.0-2.0); HEMATOCRIT 23.9 % (37.0-47.0); LYMPHOCYTES 8.2 % (24.0-44.0); MCHC 33.3 g/dL (28.0-37.0); MCV 87.1 fL (80.0-100.0); PLATELET COUNT 232 thou/uL (150-400); POLYS 82.7 % (36.0-66.0); RBC 2.74 mil/uL (4.20-5.00); RDW 15.2 % (10.5-14.5); WBC 7.6 thou/uL (4.0-11.0)
[2020-04-12 06:58] LABS: INR 1.8; PROTIME 18.7 Seconds (9.3-11.4)
[2020-04-12 07:06] LABS: ALBUMIN 2.2 g/dL (3.4-5.0); CALCIUM 8.8 mg/dL (8.5-10.1); CREATININE 3.2 mg/dL (0.6-1.0); POTASSIUM 3.9 mmol/L (3.5-5.1); TOTAL BILIRUBIN 0.2 mg/dL (0.2-1.0); TOTAL PROTEIN 5.6 g/dL (6.4-8.2)
--- NOTE | 2020-04-12 07:47 | NUR ---
PATIENT REMAINS MECHANICALLY INTUBATED. NO CHANGE IN SETTINGS. SEE ASSESSMENT. CONVALESCENT PLASMA THERAPY GIVEN THIS MORNING, NO ISSUES NOTED. VITALS CHARTED. SEE ASSESSMENT FOR MORE INFO.
--- NOTE | 2020-04-12 08:20 | NUR ---
Has been intubated and npo x 2 days. Recommend start enteral nutrition of vital high protein at 30ml/hr and goal of 50ml/hr while on current dosing of propofol
--- NOTE | 2020-04-12 08:46 | NUR ---
Pt HAD DECLINE IN CONDITION AND IS INTUBATED. WILL PLACE ON HOLD AND AWAIT NEW ORDERS TO RESUME WHEN APPROPRIATE
--- NOTE | 2020-04-12 09:53 | NUR ---
chart review. pt remains on vent. no answer when call pt brother any. will cont following as needed for dc needs. pt from [facility].
--- NOTE | 2020-04-12 12:00 | NUR ---
PATIENT DECLINE IN STATUS, ON VENT. REQUEST TO HOLD THERAPY, WILL NEED NEW ORDERS FOR OT WHEN APPROPRIATE
--- NOTE | 2020-04-12 17:24 | NUR ---
PT INTUBATED AND SEDATED. VENT SETTINGS UNCHANGED. NEUROLOGICALLY INTACT. AFEBRILE. PROPOFOL/FENTANYL GTT FOR VENT MANAGEMENT. DIETARY HAS RECOMMENDED VITAL HP TO BE INIATED AT 30ML/HR, GOAL OF 50. UOP ADEQUATE. NO BM TODAY. PT AND FAMILY HAVE BEEN UPDATED AND EDUCATED ON PT CONDITION AND POC. WILL CONTINUE TO MONITOR.
[2020-04-13] VITALS (23 sets, daily range): BP systolic 113–162; BP diastolic 51–76
--- NOTE | 2020-04-13 06:32 | NUR ---
PT FOLLOWING COMMANDS. PT HAD AN UNEVENTFUL NIGHT. HEART RATE STILL IN UPPER 40'S. PT ON 10 PEEP AND 40 FIO2. TUBE FEED STARTED THIS MORNING. CENTRAL LINE DRESSING CHANGED WITH THE LINE BEING OUT MORE THAN IT NORMALLY DOES. MODERATE AMOUNT BLEEDING FROM THE RIGHT IJ. INPUT FROM IV TEAM WOULD BE APPRECIATED. URINE OUTPUT ADEQUATE. CHART CHECK. CONTINUE TO MONITOR.
[2020-04-13 07:13] LABS: ALBUMIN 2.4 g/dL (3.4-5.0); CALCIUM 8.7 mg/dL (8.5-10.1); CREATININE 2.8 mg/dL (0.6-1.0); PHOSPHORUS 4.4 mg/dL (2.5-4.9); POTASSIUM 4.1 mmol/L (3.5-5.1)
[2020-04-13 10:59] LABS: HEMATOCRIT 25.7 % (37.0-47.0); HEMOGLOBIN 8.4 gm/dL (12.0-15.0); MCH 29.1 pg (26.0-34.0); MCHC 32.5 g/dL (28.0-37.0); MCV 89.4 fL (80.0-100.0); PLATELET COUNT 247 thou/uL (150-400); RBC 2.87 mil/uL (4.20-5.00); RDW 15.4 % (10.5-14.5); WBC 9.8 thou/uL (4.0-11.0)
[2020-04-13 11:34] LABS: ABSOLUTE NEUTROPHILS 9.3 thou/uL (1.4-8.2); PLATELET ESTIMATE NORMAL
--- NOTE | 2020-04-13 13:35 | NUR ---
Nurse spoke to patients brother, Bereket Willis, and gave him an update on patients status.
[2020-04-13 14:48] LABS: INR 1.7
--- NOTE | 2020-04-13 16:39 | NUR ---
SPOKE WITH SISTER LYUBOV AND UPDATED HER ON PATIENT CONDITION AND PLAN OF CARE. PEEP DECREASED TO 8 AND TOLERATING WELL. SB ON MONITOR WITH NO ECTOPY. AFEBRILE. BP WNL, UOP WNL. SEDATED ON PROPOFOL AND FENTANYL. AWAKES DURING SEDATION VACATION AND FOLLOWS COMMANDS.
--- NOTE | 2020-04-13 20:51 | NUR ---
VAT CONSULTED FOR A FL REPLACEMENT. NEW TL IJ PLACED IN LT, RT IJ REMOVED BY RN IT WAS MALPOSITIONED. PLEASE SEE INSERTION NI FOR DETAILS. LOT [id number]
[2020-04-14] VITALS (20 sets, daily range): BP systolic 94–147; BP diastolic 41–69
[2020-04-14 12:33] LABS: HEMATOCRIT 23.8 % (37.0-47.0); HEMOGLOBIN 7.9 gm/dL (12.0-15.0); MCH 28.9 pg (26.0-34.0); MCHC 33.1 g/dL (28.0-37.0); MCV 87.2 fL (80.0-100.0); PLATELET COUNT 264 thou/uL (150-400); RBC 2.72 mil/uL (4.20-5.00); RDW 15.4 % (10.5-14.5); WBC 10.8 thou/uL (4.0-11.0)
[2020-04-14 13:07] LABS: ALBUMIN 2.2 g/dL (3.4-5.0); CALCIUM 8.5 mg/dL (8.5-10.1); CREATININE 3.1 mg/dL (0.6-1.0); PHOSPHORUS 4.9 mg/dL (2.5-4.9); POTASSIUM 3.8 mmol/L (3.5-5.1)
[2020-04-14 13:13] LABS: BE(vivo) -5.9 mmol/L (-2 to +3); HCO3 18.5 mmol/L (22.0-26.0); PCO2 32.1 mmHg (35.0-45.0); pH 7.378 (7.360-7.450)
[2020-04-14 13:14] LABS: PO2 54.1 mmHg (80.0-100.0)
[2020-04-14 13:42] LABS: ABSOLUTE NEUTROPHILS 9.7 thou/uL (1.4-8.2); METAMYELOCYTES 1 %
--- NOTE | 2020-04-14 18:53 | NUR ---
RN SPOKE WITH DAUGHTER LYUBOV AND UPDATED HER ON INCREASING NEED FOR 02 AND PLAN OF CARE. FI02 AT 75%, PEEP 12. TMAX 100.1. INCREASED TUBE FEED RESIDUALS OF 200 - 250. NOT AT GOAL OF 55 YET, 40CC/HR
[2020-04-15] VITALS (22 sets, daily range): BP systolic 97–131; BP diastolic 40–58
[2020-04-15 05:02] LABS: CALCIUM 8.5 mg/dL (8.5-10.1); CREATININE 3.1 mg/dL (0.6-1.0); POTASSIUM 3.8 mmol/L (3.5-5.1)
[2020-04-15 10:55] LABS: BE(vivo) -4.4 mmol/L (-2 to +3); HCO3 20.9 mmol/L (22.0-26.0); PCO2 38.9 mmHg (35.0-45.0); PO2 57.1 mmHg (80.0-100.0); pH 7.348 (7.360-7.450); sO2 88.5 % (92.0-98.0)
--- NOTE | 2020-04-15 16:03 | NUR ---
ASSUMED CARE OF PATIENT AT 0700; PATIENT REMAINS INTUBATED ON 85% FI02; AT 0800 PATIENT BEGAN DESATURATING TO 88%, RT INCREASED TO 100% FI02 WITH IMPROVED SATS. DR. ANTONIO NOTIFIED OF CHANGES; FAMILY UPDATED ACCORDINGLY.
--- NOTE | 2020-04-15 17:02 | NUR ---
FAXED CLINICAL UPDATE TO [facility] SPOKE WITH GATO IN ADM SHE RECEIVED UPDATE. DP TO FOLLOW.
[2020-04-15 18:16] LABS: HEMATOCRIT 20.8 % (37.0-47.0); HEMOGLOBIN 7.1 gm/dL (12.0-15.0); MCH 29.9 pg (26.0-34.0); MCHC 34.1 g/dL (28.0-37.0); MCV 87.7 fL (80.0-100.0); RBC 2.37 mil/uL (4.20-5.00); RDW 15.5 % (10.5-14.5); WBC 11.1 thou/uL (4.0-11.0)
[2020-04-15 18:30] LABS: INR 1.2; PROTIME 12.1 Seconds (9.3-11.4)
--- NOTE | 2020-04-15 19:37 | NUR ---
PATIENT CARE HANDED OVER TO NIGHT RN, UPDATED ON PLAN TO START HEPARIN GTT AND PRONE PATIENT. RN VERBALIZES UNDERSTANDING. PATIENT REMAINS ON FENTANYL AND PROPOFOL FOR SEDATION, AND ON 100% FI02; VSS.
[2020-04-16] VITALS (10 sets, daily range): BP systolic 107–145; BP diastolic 45–77
--- NOTE | 2020-04-16 03:34 | NUR ---
ASSESSMENT: PT REMAIN ALERT WHEN OUT FROM SEDATION, WILL ATTEMPT TO FOLLOW SIMPLE COMMANDS. PT WAS TURNED PRONE AT 2430. DID NOT TOLERATE THAT POSITION AT ALL. DR. ANTONIO WAS NOTIFIED. ORDERS GIVEN TO TURN PT TO SUPINE POSITION AND CALL THE FAMILY FOR UPDATE IN STATUS. PT'S BROTHER, EVARISTO BAUER WAS CALLED AT [phone] AND A MESSAGE WAS LEFT ON THE VOICE MAIL TO CONTACT [facility] IN REFERRANCE TO PT'S STATUS. OF 335 NO CALL HAS BEEN RECEIVED FROM THE BROTHER WHICH IS THE DPOA OF THE PT. VENT SETTINGS: TV 500 PEEP 12 AC 15 AND FIO2 100% PT IS NOW SATING 98%, WHILE IN PRONE POSITION, PT SAT MAX OF 89% AND BEGIN DESATING IN THE MID 80'S SUSTAINED. MINIMAL AMT OF ORAL SECRETIONS, CLEAR AND THIN. SCANT AMTS OF SUCTIONING FROM TUBE. ONE SMALL BM THIS SHIFT. UO ADEQUATE AMTS PER SORENSEN. SR-SB PER MONITOR. POOR PROGRESS TOWARDS DC GOALS. WILL CONTINUE TO MONITOR.
[2020-04-16 05:14] LABS: BE(vivo) -6.4 mmol/L (-2 to +3); PCO2 37.3 mmHg (35.0-45.0); PO2 63.2 mmHg (80.0-100.0); sO2 90.8 % (92.0-98.0)
[2020-04-16 05:16] LABS: pH 7.326 (7.360-7.450)
--- NOTE | 2020-04-16 05:40 | NUR ---
PT'S BROTHER WAS NOTIFIED OF PT NOT BEING ABLE TO TOLERATE PRONE POSITION, PT DESATS TO THE MID 80'S. ONCE TURNED BACK TO SUPINE POSITION, PT SATS 95-98% WITH FIO2 AT 100%. BROTHER WAS INFORMED AND UNDERSTOOD THE CURRENT STATUS OF THE PT. PT PRESENTLY REMAIN A FULL CODE. WILL CONTINUE TO MONITOR.
[2020-04-16 09:01] LABS: POTASSIUM 4.2 mmol/L (3.5-5.1)
--- NOTE | 2020-04-16 10:35 | NUR ---
chart review. pt remains intubated with tf for nutritional support. unable to visit with joanie. updates sent to [facility] yesterday. cm spoke with brother any [phone] via phone call, active listen and support during phone call " not sure if i want her going back to [facility] if she pulls through this, prayer for her"/ brother any. no anticipation dc over weekend.
[2020-04-16 13:44] LABS: HEMATOCRIT 21.9 % (37.0-47.0); HEMOGLOBIN 7.2 gm/dL (12.0-15.0)
--- NOTE | 2020-04-16 18:09 | NUR ---
PT INTUBATED AND SEDATED. RT ATTEMPTED TO TITRATE FIO2, UNSUCCESSFUL; PT COULD NOT KEEP SATURATIONS ABOVE 90%. FIO2 AT 100%. TUBE FEED AT GOAL WITH INCREASING RESIDUALS. ADEQUATE UOP. NO BM. HEPARIN GTT WAS STOPPED PER DR. MCCARTY/DR. ANTONIO. PTS FAMILY HAS BEEN EDUCATED AND UPDATED ON PT CONDITION AND POC. WILL CONTINUE TO MONITOR.
--- NOTE | 2020-04-16 20:47 | HC ---
[facility] [address] CONSULTATION Name: TAWANDA ADAME Room #: 237-P ADM IN M.R.#: [id number] Admission: 04/07/20 Attend Phys: Bar Buck MD Discharge: Date of : 46 Report #: [id number] THIS REPORT FOR: cc: Heath Tran James D. DO Al-Absi, Ahmed I. MD ~ CC: Heath Buck DATE OF SERVICE: 04/12/2020 REASON FOR CONSULTATION: Elevated creatinine. REASON FOR PRESENTATION: Not feeling well with respiratory distress. HISTORY OF PRESENT ILLNESS: This is obtained from the medical chart. The patient is currently intubated and not able to provide me with any history. She is a 69-year-old who was brought via the EMS for respiratory distress and was found to have an O2 sat of 76%. She is usually on 4 liters by nasal cannula. Apparently, the patient carries a diagnosis of CKD, DVT, CHF, diabetes mellitus, hypertension, cardiomyopathy. She is also known to have chronic kidney disease and sees somebody for her chronic kidney disease. She has a left-sided AV fistula that has never been utilized. The patient's condition deteriorated and she had to be intubated. She tested positive for COVID-19 and I was asked to assist with the management of her chronic kidney disease. PAST MEDICAL HISTORY: 1. Diabetes mellitus. 2. Hypertension. 3. Cardiomyopathy. 4. Psychiatric disorders. REVIEW OF SYSTEMS: Completely unobtainable given the patient's intubation status. MEDICATIONS: Listed amongst her medications: 1. Lasix. 2. Sodium bicarbonate. 3. Amlodipine. 4. Calcitriol. 5. Spiriva. 6. Tramadol. 7. Sertraline. ALLERGIES: LISTED TO LISINOPRIL AND PENICILLIN. [facility] [address] [place] [address] CONSULTATION Name: TAWANDA ADAME Room #: 237-P [facility].#: [id number] Admission: 04/07/20 Attend Phys: Bar Buck MD Discharge: Date of : 46 Report #: [id number] SOCIAL HISTORY: I am not able to obtain given the patient's current intubation status. FAMILY HISTORY: Unable to obtain given the patient's current mental status. REVIEW OF SYSTEMS: Unobtainable given the patient's current mental status. PHYSICAL EXAMINATION: GENERAL: She is intubated. VITAL SIGNS: Pulse rate is 48, temperature is 36.8. She had a temperature of 38.1 on arrival. Blood pressure is 132/64. HEAD AND NECK: ET tube in place. CHEST: Decreased air entry bilaterally with crackles. CARDIOVASCULAR: No rub. ABDOMEN: Soft, nontender. LOWER EXTREMITIES: +3 edema. UPPER EXTREMITIES: There is a left-sided radiocephalic AV fistula. LABORATORY VALUES: Sodium is 137, potassium 3.9, BUN is 46, creatinine is 3.2. Chest x-ray, bilateral pulmonary infiltrates. Hemoglobin is 8. Blood cultures pending. ASSESSMENT, IMPRESSION AND PLAN: 1. COVID-19 active infection. 2. Chronic kidney disease. 3. Acute hypoxic respiratory failure. 4. History of deep venous thrombosis. 5. Hypertension. 6. Diabetes mellitus. 7. The patient seems to be at her baseline from the chronic kidney disease perspective. She is making appropriate amount of urine. Creatinine had been stable. Electrolytes are all optimized. I will reach out to the patient's family member, but the patient is not in need for any other intervention regarding her chronic kidney disease. The main stay of treatment at this point is to address her respiratory failure, on her active COVID-19 status. I will continue to follow sporadically. Avoid nephrotoxins. 8. Adjust all medications to GFR. 9. We will continue to follow. <ELECTRONICALLY SIGNED> By: Mary Alice Frederick MD 04/16/20 [id number] Mary Alice Frederick MD /nt
[2020-04-17] VITALS (24 sets, daily range): BP systolic 95–153; BP diastolic 48–68
[2020-04-17 06:11] LABS: INR 1.1; PROTIME 10.9 Seconds (9.3-11.4)
[2020-04-17 06:16] LABS: FIBRINOGEN 570.1 mg/dL (210-360)
[2020-04-17 06:30] LABS: ALBUMIN 1.8 g/dL (3.4-5.0); CALCIUM 8.9 mg/dL (8.5-10.1); CREATININE 3.1 mg/dL (0.6-1.0); PHOSPHORUS 6.7 mg/dL (2.5-4.9); POTASSIUM 4.5 mmol/L (3.5-5.1); TOTAL BILIRUBIN 0.2 mg/dL (0.2-1.0); TOTAL PROTEIN 5.9 g/dL (6.4-8.2)
[2020-04-17 08:03] LABS: URINE BILIRUBIN NEGATIVE (Negative); URINE BLOOD 3+ (Negative); URINE CLARITY SL HAZY; URINE COLOR LT PINK; URINE GLUCOSE-RANDOM* NEGATIVE (Negative); URINE KETONES NEGATIVE (Negative); URINE LEUKOCYTES-REFLEX NEGATIVE (Negative); URINE NITRITE-REFLEX NEGATIVE (Negative); URINE PROTEIN (DIPSTICK) 2+ (Negative); URINE SPECIFIC GRAVITY 1.015 (1.005-1.035); URINE UROBILINOGEN 0.2 E.U./dl (0.2-1.0)
[2020-04-17 08:08] LABS: BACTERIA-REFLEX 1-9 Few /HPF (None Seen); CASTS None Seen /LPF (None Seen); MUCUS 0-3 Light strn/LPF (None Seen); SQUAMOUS 0-3 Few /LPF (0-3); URINE WBC-REFLEX 0-5 Rare /HPF (0-5)
[2020-04-17 08:09] LABS: CRYSTALS None Seen /LPF (None Seen); URINE RBC >20 Many /HPF (0-2)
--- NOTE | 2020-04-17 10:37 | NUR ---
ON THE VENT LIGHTLY SEDATED AND VITALS STABLE. ASSESSMENT DOCUMENTED. TOLERATING TUBEFEEDING PER OGT WITH MINIMAL RESIDUALS. WILL CONTINUE WITH POC.
[2020-04-17 13:06] LABS: HEMATOCRIT 23.6 % (37.0-47.0); HEMOGLOBIN 7.6 gm/dL (12.0-15.0)
--- NOTE | 2020-04-17 15:49 | NUR ---
FAMILY UPDATED OVER THE PHONE. PATIENT PLACED IN PRONE POSITION THIS AFTERNOON, STARTED TO DESATURATE TO MID 80'S, IF DOESN'T RECOVER WILL NOTIFY DR. ANTONIO SHORTLY.
--- NOTE | 2020-04-17 18:33 | NUR ---
NOTIFIED DR. ANTONIO THAT PATIENT WAS NOT TOLERATING PRONING AND WAS DESATURATING. PATIENT PLACED BACK ON HER BACK AND SATURATION WENT UP TO 100%., TUBEFEEDING RESUMED.
[2020-04-18] VITALS (21 sets, daily range): BP systolic 95–139; BP diastolic 48–75
[2020-04-18 05:40] LABS: PCO2 38.7 mmHg (35.0-45.0); PO2 116.3 mmHg (80.0-100.0); sO2 97.8 % (92.0-98.0)
[2020-04-18 05:40] LABS: MCV 89.1 fL (80.0-100.0)
[2020-04-18 05:41] LABS: HEMATOCRIT 22.2 % (37.0-47.0); MCH 28.1 pg (26.0-34.0); MCHC 31.5 g/dL (28.0-37.0); RBC 2.49 mil/uL (4.20-5.00); RDW 15.7 % (10.5-14.5); WBC 12.8 thou/uL (4.0-11.0)
[2020-04-18 05:41] LABS: pH 7.285 (7.360-7.450)
[2020-04-18 08:13] LABS: CALCIUM 9.2 mg/dL (8.5-10.1); CREATININE 3.3 mg/dL (0.6-1.0); POTASSIUM 4.5 mmol/L (3.5-5.1)
[2020-04-18 08:16] LABS: ALBUMIN 1.8 g/dL (3.4-5.0); PHOSPHORUS 7.4 mg/dL (2.5-4.9)
--- NOTE | 2020-04-18 18:46 | NUR ---
PATIENT ON THE VENT LIGHTLY SEDATED, VITALS STABLE. ASSESSMENT DOCUMENTED. FAMILY UPDATED OVER THE PHONE. WILL CONTINUE WITH POC.
[2020-04-19] VITALS (12 sets, daily range): BP systolic 99–125; BP diastolic 34–75
[2020-04-19 06:55] LABS: HEMATOCRIT 22.8 % (37.0-47.0); HEMOGLOBIN 7.4 gm/dL (12.0-15.0); MCHC 32.4 g/dL (28.0-37.0); MCV 89.4 fL (80.0-100.0); PLATELET COUNT 372 thou/uL (150-400); RBC 2.55 mil/uL (4.20-5.00); WBC 16.7 thou/uL (4.0-11.0)
[2020-04-19 07:15] LABS: ALBUMIN 1.9 g/dL (3.4-5.0); CALCIUM 8.9 mg/dL (8.5-10.1); CREATININE 3.3 mg/dL (0.6-1.0); POTASSIUM 4.6 mmol/L (3.5-5.1); TOTAL BILIRUBIN 0.2 mg/dL (0.2-1.0); TOTAL PROTEIN 5.8 g/dL (6.4-8.2)
[2020-04-19 08:33] LABS: ABSOLUTE NEUTROPHILS 14.9 thou/uL (1.4-8.2); PLATELET ESTIMATE NORMAL
--- NOTE | 2020-04-19 08:54 | NUR ---
SEE [facility] FOR ASSESSMENT. PT NOT PROGRESSING TOWARD GOALS. ON SEDATION, STILL REQUIRING MAXIMUM OXYGENTATION ON VENT. FI02 80%. AND PEEP 12. LS COARSE PRONCI. SUCTION MINIMAL WHITE SECRETIONS.UO MINIMALLY ADEQUATE A 30CC/HR
--- NOTE | 2020-04-19 14:07 | NUR ---
FAXED CLINICAL UPDATE TO [facility] RECEIVED CONFIRMATION AND LEFT MSG WITH GATO IN ADM. DP TO FOLLOW.
--- NOTE | 2020-04-19 14:34 | NUR ---
pt remains intubated, tf for nutritional support. updates to be sent to [facility].
--- NOTE | 2020-04-19 15:42 | NUR ---
PT INTUBATED AND SEDATED. VENT SETTINGS CHANGED FROM 100%TO 80% FIO2. PT HAS NEWLY FOUND SUBQ CRACKLES ON SUPERIOR BILATERAL CLAVICLES, CXR ORDERED. PT IS NOT TOLERATING TUBE FEEDINGS, RESIDUALS OF GREATER THAN 240ML X2 OVER THE PAST 8 HOURS. HEPARIN IS THERAPEUTIC, WILL NEED APTT RE-DRAW AT 2330 TONIGHT.
[2020-04-20] VITALS (17 sets, daily range): BP systolic 92–131; BP diastolic 37–71
[2020-04-20 05:53] LABS: BE(vivo) -9.6 mmol/L (-2 to +3); PCO2 47.6 mmHg (35.0-45.0); PO2 74.1 mmHg (80.0-100.0); pH 7.195 (7.360-7.450); sO2 91.4 % (92.0-98.0)
[2020-04-20 05:56] LABS: HEMATOCRIT 22.9 % (37.0-47.0); HEMOGLOBIN 7.3 gm/dL (12.0-15.0); MCH 28.9 pg (26.0-34.0); MCHC 32.1 g/dL (28.0-37.0); MCV 89.9 fL (80.0-100.0); RBC 2.54 mil/uL (4.20-5.00); RDW 16.2 % (10.5-14.5)
[2020-04-20 06:24] LABS: CALCIUM 8.6 mg/dL (8.5-10.1); CREATININE 3.5 mg/dL (0.6-1.0); POTASSIUM 4.3 mmol/L (3.5-5.1)
--- NOTE | 2020-04-20 08:43 | NUR ---
SEE [facility] FOR ASSESMENT. PT SEDATED ON PROPOFOL AND FENTANYL TRIED TO LIGHTENED, PT AWAKENS. DOES NOT FOLLOW COMMANDS. BECOMES TACYPNIC. 24-26. DRY COUGH WITH SUCTION, MINIMAL SECRETIONS. AGB CRITICAL THIS AM WITH PH 7.20. DR ANTONIO NOTIFIED, ORDERS RECIEVED. PT NOT TOLERATING TF. HIGH RESIDULAS DESPITE REGLAN OR FECAL TUBE. ABD SOFT, MINIMAL. FREQUENT BS DONE, BLOOD GLUCOSE AT 60, 67 OR 6G. D50 GIVEN PER PROTOCOL.
--- NOTE | 2020-04-20 11:48 | NUR ---
cm notified by dr pike, new order for pt to be dnr
--- NOTE | 2020-04-20 18:46 | NUR ---
PATIENT REMAINS INTUBATED ON 90% FIO2 AND 12 OF PEEP; DOES NOT TOLERATE LOWER SETTINGS; REMAINS ON PROPOFOL, AND FENTANYL GTT FOR SEDATION WELL HEPARIN GTT FOR A/C. PATIENT WILL OPEN EYES WITH SEDATION VACATION, DOES NOT FOLLOW COMMANDS. CODE STATUS CHANGED TO DNR PER DR. JAQUEZ. SISTER (ROSALIND) CALLED AND UPDATED ON STATUS AND PLAN OF CARE.
[2020-04-21] VITALS (24 sets, daily range): BP systolic 99–139; BP diastolic 40–64
[2020-04-21 06:15] LABS: HEMOGLOBIN 6.8 gm/dL (12.0-15.0); MCH 28.6 pg (26.0-34.0); MCHC 32.4 g/dL (28.0-37.0)
[2020-04-21 06:18] LABS: MCV 88.3 fL (80.0-100.0); RBC 2.38 mil/uL (4.20-5.00); RDW 15.4 % (10.5-14.5); WBC 16.5 thou/uL (4.0-11.0)
--- NOTE | 2020-04-21 07:16 | NUR ---
CARE ASSUMED 1900. PT SEDATED. UNABLE TO FOLLOW COMMDANDS. OPENS HE EYES WHEN SEDATION IS PAUSED. SR ON THE MONITOR. VENTILATOR WITH FIO2 OF 90%, SATS >94 MAINTAINED. GENERALIZED EDEMA, WITH NO SKIN BREAKDOWN NOTED. PT HAS RESIDUAL VOLUME OF 100 WITH HER TUBE FEEDING, HYPOACTIVE BOWEL SOUNDS. NO SIGN OF DISTRESS. UNABLE TO DRAW APTT THIS MORNING BECAUSE THE IJ WAS NOT HAVING GOOD BLOOD RETURN. AM RN NOFIFIED. WILL CONTINUE WITH CURRENT POC.
--- NOTE | 2020-04-21 17:04 | NUR ---
FAXED CLINICAL UPDATE TO [facility] SPOKE WITH GATO IN ADM SHE RECEIVED UPDATE. DP TO FOLLOW.
--- NOTE | 2020-04-21 18:39 | NUR ---
PT INTUBATED AND SEDATED. VENT SETTINGS UNCHANGED. VERY WEAK NEUROLOGICALLY, DOES NOT FOLLOW COMMANDS BUT MOVES ALL EXTREMITIES.
[2020-04-22] VITALS (17 sets, daily range): BP systolic 69–157; BP diastolic 15–80
[2020-04-22 05:13] LABS: ALBUMIN 1.8 g/dL (3.4-5.0); CALCIUM 8.1 mg/dL (8.5-10.1); CREATININE 3.9 mg/dL (0.6-1.0); POTASSIUM 4.5 mmol/L (3.5-5.1)
[2020-04-22 08:13] LABS: MCV 89.3 fL (80.0-100.0)
[2020-04-22 08:15] LABS: MCH 28.8 pg (26.0-34.0); MCHC 32.3 g/dL (28.0-37.0); RBC 2.18 mil/uL (4.20-5.00); RDW 16.1 % (10.5-14.5); WBC 12.8 thou/uL (4.0-11.0)
[2020-04-22 08:27] LABS: HEMATOCRIT 19.5 % (37.0-47.0); HEMOGLOBIN 6.3 gm/dL (12.0-15.0)
--- NOTE | 2020-04-22 12:54 | NUR ---
FULL BAG OF VERSED GTT RETURNED TO PHARMACY, THIS IS NOT NEEDED AT THIS TIME. THIS BAG WAS RECIEVED BY ALVERTO BABIN- D.
[2020-04-22 14:55] LABS: T-SPOT.TB Negative
--- NOTE | 2020-04-22 15:15 | NUR ---
SW reviewed chart and spoke with nursing. Palliative care consulted. Pt remains in ICU and in Enhanced Isolation due to COVID-19. Pt's family were able to Face Time earlier today to see pt. Pt's family have chosen to palliatively extubate and make pt comfort care today. SW updated [facility] post-acute liaison. SW is available to assist should needs arise.
--- NOTE | 2020-04-22 15:23 | NUR ---
ASSUMED CARE @ 0700, PT ASSESSMENTS AND VSS COMPLETED PER ICU PRT AT START OF SHIFT. DR PLEITEZ PAGED TO REPORT CRITICAL HGB AND HCT, NO NEW ORDERS RECIEVED. PT ON FENTANYL AND PROPOFOL GTT FOR VENT MANAGEMENT, SEDATION VACATION PERFORMED, PT DID NOT FOLLOW COMMANDS, SHE DOES OPEN EYES TO VOICE, BUT DOES NOT TRACK, VERY WEAK GAG REFLEX AND + CORNEAL REFLEX. PT ENCOUNTERED ON 90% FI02 SATS IN THE 90'S, FI02 TITRATED DOWN TO 75%, PT DID NOT TOLERATE, SATS DOWN TO 80'S, PT PUT BACK @ 95. DR PLEITEZ AND MARISELA ROUND IN THE AM. DR PLEITEZ PLACED CALL TO FAMILY, FAMILY IS IN AGREEMENT WITH COMFORT CARE, ORDERS PLACED. DR JAQUEZ ROUNDS THIS AFTERNOON, HE IS ABLE TO GET FAMILY ON VIDEO CALL TO SAY GOODBYE TO HER. WILL CONT TO FOLLOW COMFORT CARE ORDERS.
== END 2020-04-22 16:12 | DRG 207 ==
LOC: ER 12:47 → ICU 15:05 → EROBS 15:05 → ICU 16:17
PROVIDERS: Emergency Medicine; Hospitalist; Internal Medicine; Internal Medicine Nephrology; Internal Medicine Pulmonary Disease; Pediatrics; Specialist; ADMIT Hospitalist; ATTEND Hospitalist
PROC: 5A09357 Assistance with Respiratory Ventilation, Less than 24 Consecutive Hours, Continuous Positive Airway Pressure (ICD-10-PCS; principal; 2020-04-07)
PROC: 5A09357 Assistance with Respiratory Ventilation, Less than 24 Consecutive Hours, Continuous Positive Airway Pressure (ICD-10-PCS; 2020-04-08)
PROC: 5A09357 Assistance with Respiratory Ventilation, Less than 24 Consecutive Hours, Continuous Positive Airway Pressure (ICD-10-PCS; 2020-04-09)
PROC: 5A09357 Assistance with Respiratory Ventilation, Less than 24 Consecutive Hours, Continuous Positive Airway Pressure (ICD-10-PCS; 2020-04-10)
PROC: 5A1955Z Respiratory Ventilation, Greater than 96 Consecutive Hours (ICD-10-PCS; 2020-04-10)
PROC: 02HV33Z Insertion of Infusion Device into Superior Vena Cava, Percutaneous Approach (ICD-10-PCS; 2020-04-10)
PROC: 0BH17EZ Insertion of Endotracheal Airway into Trachea, Via Natural or Artificial Opening (ICD-10-PCS; 2020-04-10)
PROC: 30233K1 Transfusion of Nonautologous Frozen Plasma into Peripheral Vein, Percutaneous Approach (ICD-10-PCS; 2020-04-12)
DX: U07.1 COVID-19 (principal); J96.01 Acute respiratory failure with hypoxia; I50.33 Acute on chronic diastolic (congestive) heart failure; N18.6 End stage renal disease; J12.89 Other viral pneumonia; I42.9 Cardiomyopathy, unspecified; N17.9 Acute kidney failure, unspecified; I13.2 Hypertensive heart and chronic kidney disease with heart failure and with stage 5 chronic kidney disease, or end stage renal disease; I74.9 Embolism and thrombosis of unspecified artery; Z68.43 Body mass index [BMI] 50.0-59.9, adult; J44.0 Chronic obstructive pulmonary disease with (acute) lower respiratory infection; J45.909 Unspecified asthma, uncomplicated; E03.9 Hypothyroidism, unspecified; F41.9 Anxiety disorder, unspecified; F17.210 Nicotine dependence, cigarettes, uncomplicated; E11.22 Type 2 diabetes mellitus with diabetic chronic kidney disease; D63.8 Anemia in other chronic diseases classified elsewhere; E66.01 Morbid (severe) obesity due to excess calories; R00.1 Bradycardia, unspecified; Z66 Do not resuscitate; Z51.5 Encounter for palliative care; Z86.718 Personal history of other venous thrombosis and embolism; Z88.0 Allergy status to penicillin; Z88.8 Allergy status to other drugs, medicaments and biological substances; Z79.82 Long term (current) use of aspirin; Z79.899 Other long term (current) drug therapy
CPT/HCPCS: 10078